=== PATIENT | female | born 1950 | race Caucasian/White ===

== ENCOUNTER 2023-02-16 13:18 | Observation (INO) | payer MEDICARE ==
[~2023-02-16] VITALS: Ht 160 cm; Wt 56.5 kg
[~2023-02-16 13:18] MED LIST: ATOR40TA PO; Amoxicillin500 MG PO; EUTHYROX25 MC1 PO; IBUP600 PO; LEVSOD50; Neurontin800 MG PO; Norco 5-325 Ta1 EACH PO; OXYB5 PO; Ropinirole HC0.25 MG; Zofran8 MG PO
[2023-02-16] MEDS ORDERED: MELA3 (13:41)
[2023-02-16] MEDS ORDERED: ERGO400 (13:41)
[2023-02-16 14:28] LABS: BASOPHILS ABSOLUTE AUTO 0.03 K/mm3 (0.00-0.23); BASOPHILS PERCENT AUTO 1 % (0-2); EOSINOPHILS ABSOLUTE AUTO 0.05 K/mm3 (0.00-0.68); EOSINOPHILS PERCENT AUTO 1 % (0-6); Hematocrit 34.1 % (33.0-51.0); Hemoglobin 11.2 g/dL (11.5-16.0); IMMATURE GRAN ABSOLUTE AUTO 0.01 K/mm3 (0.00-0.10); IMMATURE GRAN PERCENT AUTO 0 % (0-1); LYMPHOCYTES PERCENT AUTO 31 % (21-46); MONOCYTES ABSOLUTE AUTO 0.53 K/mm3 (0.16-1.47); MONOCYTES PERCENT AUTO 14 % (4-13); Mean Corpuscular HGB 29.5 pg (26.0-34.0); Mean Corpuscular HGB Conc 32.8 g/dL (31.5-36.5); Mean Corpuscular Volume 90 fL (80-100); Mean Platelet Volume 10.1 fL (9.1-12.4); NEUTROPHILS ABSOLUTE AUTO 2.08 K/mm3 (1.96-9.15); NEUTROPHILS PERCENT AUTO 53 % (41-73); Platelet Count 158 K/mm3 (150-400); RDW Standard Deviation 42.6 fL (35.1-46.3)
[2023-02-16 14:40] LABS: Albumin, Blood 3.7 g/dL (3.4-5.0); Albumin/Globulin Ratio 1.1 (0.8-1.8); Bilirubin, Total 0.4 mg/dL (0.1-1.0); Calcium, Blood 8.7 mg/dL (8.5-10.1); Creatinine, Blood 0.67 mg/dL (0.40-1.00); Globulin, Blood 3.3 g/dL (2.2-4.0); Potassium, Blood 3.8 mmol/L (3.5-5.5)
--- NOTE | 2023-02-16 22:05 | NUR ---
REPORT FROM ESTHER LAMB IN ER. AWAITING ARRIVAL OF PATIENT TO ROOM 353
[2023-02-16 22:42] VITALS: BP 143/73
--- NOTE | 2023-02-17 06:40 | NUR ---
THE PATIENT ARRIVED INTACT WITHOUT ANY FURTHER NEUROLOGICAL EPISODES OVERNIGHT. MRI PAPERS COMPLETED BY PATIENT AND SENT (ORIG IN CHART). 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 SHE ACTUALLY NEVER DID HAVE TB ORIGINALLY SUSPECTED. THIS LADY RECEIVES 1600MG GABAPENTIN TWICE DAILY FOR THIS DISEASE ( PRESCRIBED BY [facility]) PHYSICAL ASSESSMENT BENIGN. NO COMPLAINTS OVERNIGHT
[2023-02-17 07:31] VITALS: BP 134/77
[2023-02-17] MEDS ORDERED: ASPI81CH PO (17:54)
--- NOTE | 2023-02-17 19:25 | NUR ---
pt discharged from the unit. iv removed. discharge instructions reviewed. otc medication only. pt ambulated off the unit. instructed on follow up apts.
== END 2023-02-17 18:34 | disposition home or self-care (01) ==
LOC: ER 13:18 → MEDS 13:19
PROVIDERS: Student in an Organized Health Care Education/Training Program; ADMIT Internal Medicine
DX: G83.24 Monoplegia of upper limb affecting left nondominant side (principal); E78.5 Hyperlipidemia, unspecified; G47.33 Obstructive sleep apnea (adult) (pediatric); N32.81 Overactive bladder
CPT/HCPCS: 70450; 70496; 70498; 70551; 80053; 85025; 93005; 93010; 94660; 95819; 96372; 99285-25; A9270; G0378; J1650; Q9967

== ENCOUNTER 2023-06-27 20:03 | Emergency (ER) | payer MEDICARE ==
[~2023-06-27] VITALS: Ht 162.6 cm; Wt 54.4 kg
[~2023-06-27 20:03] MED LIST changes: +ASPI81CH PO; +ERGO400; +MELA3
[2023-06-27 20:32] LABS: BASOPHILS ABSOLUTE AUTO 0.02 K/mm3 (0.00-0.23); BASOPHILS PERCENT AUTO 1 % (0-2); EOSINOPHILS ABSOLUTE AUTO 0.07 K/mm3 (0.00-0.68); EOSINOPHILS PERCENT AUTO 2 % (0-6); Hemoglobin 10.6 g/dL (11.5-16.0); IMMATURE GRAN PERCENT AUTO 0 % (0-1); LYMPHOCYTES PERCENT AUTO 36 % (21-46); MONOCYTES ABSOLUTE AUTO 0.59 K/mm3 (0.16-1.47); MONOCYTES PERCENT AUTO 14 % (4-13); Mean Corpuscular HGB 29.9 pg (26.0-34.0); Mean Corpuscular HGB Conc 32.1 g/dL (31.5-36.5); Mean Corpuscular Volume 93 fL (80-100); Mean Platelet Volume 10.1 fL (9.1-12.4); NEUTROPHILS ABSOLUTE AUTO 2.02 K/mm3 (1.96-9.15); NEUTROPHILS PERCENT AUTO 48 % (41-73); Platelet Count 184 K/mm3 (150-400); RDW Coefficient Variation 13.6 % (11.7-14.2); RDW Standard Deviation 46.5 fL (35.1-46.3); Red Blood Cell Count 3.54 M/mm3 (3.80-5.20)
[2023-06-27 20:54] LABS: Albumin, Blood 3.6 g/dL (3.4-5.0); Albumin/Globulin Ratio 1.1 (0.8-1.8); Bilirubin, Total 0.2 mg/dL (0.1-1.0); Bun/Creatinine Ratio 27.2 (12.0-20.0); Calcium, Blood 8.8 mg/dL (8.5-10.1); Creatinine, Blood 0.74 mg/dL (0.40-1.00); Globulin, Blood 3.3 g/dL (2.2-4.0); Potassium, Blood 4.2 mmol/L (3.5-5.5); Total Protein, Blood 6.9 g/dL (6.4-8.2)
[2023-06-27 21:11] VITALS: BP 118/71
== END 2023-06-27 23:35 | disposition home or self-care (01) ==
LOC: ER 20:03
PROVIDERS: Student in an Organized Health Care Education/Training Program
DX: R29.898 Other symptoms and signs involving the musculoskeletal system (principal); Z79.899 Other long term (current) drug therapy; Z79.82 Long term (current) use of aspirin
CPT/HCPCS: 70450; 80053; 85025; 99284-25

== ENCOUNTER 2023-11-13 10:48 | Day surgery (SDC) | payer MEDICARE ==
[~2023-11-13] VITALS: Ht 162.6 cm; Wt 54.4 kg
[~2023-11-13 10:48] MED LIST changes: +Lactated Ringer's 1,000 ML IV ONE; +propofoL 50 ML IV ONE
[2023-11-13] MEDS ORDERED: SERT25 (11:12)
[2023-11-13] MEDS ORDERED: Lactated Ringer's 1,000 ML IV ONE (12:25)
[2023-11-13] MEDS ORDERED: Ondansetron HCl 2 MG / ML 2ML Vial ONE (13:28)
[2023-11-13] MEDS ORDERED: Glycopyrrolate 0.2 MG/ML 1MLVIAL ONE (13:28)
[2023-11-13 13:52] VITALS: BP 115/97
== END 2023-11-13 13:54 | disposition home or self-care (01) ==
LOC: ORSCSDS 10:48
PROVIDERS: Internal Medicine Gastroenterology
PROC: 0DBM8ZX Excision of Descending Colon, Via Natural or Artificial Opening Endoscopic, Diagnostic (ICD-10-PCS; principal; 2023-11-13 12:00)
DX: K59.00 Constipation, unspecified (principal); Z86.010 Personal history of colon polyps; K63.5 Polyp of colon; E03.9 Hypothyroidism, unspecified; E78.5 Hyperlipidemia, unspecified; G47.33 Obstructive sleep apnea (adult) (pediatric); K21.9 Gastro-esophageal reflux disease without esophagitis; Z79.899 Other long term (current) drug therapy
CPT/HCPCS: 88305; J2405; J2704; J7120

== ENCOUNTER 2024-04-06 06:15 | Day surgery (SDC) | payer MEDICARE ==
[~2024-04-06] VITALS: Ht 162.6 cm; Wt 57.5 kg
[~2024-04-06 06:15] MED LIST changes: -Lactated Ringer's 1,000 ML IV ONE; +NS 500 ML IV ONE; +Povidone-Iodine 450 DROP/30 ML Solution ONE; +SERT25; +Tetracaine HCl/Pf 0.5% Opth Soln 4 ml ONE; -propofoL 50 ML IV ONE
[2024-04-06] MEDS ORDERED: NS 500 ML IV ONE (06:40)
--- NOTE | 2024-04-06 06:41 | NUR ---
04/06/24 0641 Esperanza Biggs CALL LIGHT WITHIN REACH. TETRACAINE IN RIGHT EYE AT 0635 AND PLEDGETT IN AT 0636
[2024-04-06] MEDS ORDERED: Lidocaine HCl/Pf 1% 5 ML VIAL ONE (06:43)
[2024-04-06] MEDS ORDERED: Midazolam HCl 1MG / ML 2ML Vial ONE (06:51)
[2024-04-06] MEDS ORDERED: FentaNYL Citrate 50 MCG/ML 2 ML Injection ONE (06:51)
[2024-04-06] MEDS ORDERED: Triamcinolone Acetonide/Pf 40 MG/ML Susp (1ML) IO ONE (07:25)
[2024-04-06] MEDS ORDERED: BETADINE RIGHTEYE ONE (07:30)
[2024-04-06] MEDS ORDERED: Sugarcaine Ophth Soln 3 mL SYR RIGHTEYE ONE (07:41)
[2024-04-06 08:00] VITALS: BP 115/65
== END 2024-04-06 08:30 | disposition home or self-care (01) ==
LOC: ORSCSDS 06:15
PROVIDERS: Ophthalmology
PROC: 08RJ3JZ Replacement of Right Lens with Synthetic Substitute, Percutaneous Approach (ICD-10-PCS; principal; 2024-04-06 07:30)
DX: H25.11 Age-related nuclear cataract, right eye (principal); Z86.73 Personal history of transient ischemic attack (TIA), and cerebral infarction without residual deficits; Z79.899 Other long term (current) drug therapy
CPT/HCPCS: J2001; J2250; J3010; J3300; J7040; V2632

== ENCOUNTER 2024-07-13 16:12 | Emergency (ER) | payer MEDICARE ==
[~2024-07-13] VITALS: Ht 157.5 cm; Wt 54.4 kg
[~2024-07-13 16:12] MED LIST changes: -NS 500 ML IV ONE; -Povidone-Iodine 450 DROP/30 ML Solution ONE; -Tetracaine HCl/Pf 0.5% Opth Soln 4 ml ONE
[2024-07-13 17:52] VITALS: BP 142/75
[2024-07-13] MEDS ORDERED: Zithromax250 MG PO (18:03)
[2024-07-13] MEDS ORDERED: Azithromycin 250 MG Tab PO ONE (18:05)
== END 2024-07-13 18:20 | disposition home or self-care (01) ==
LOC: ER 16:12
DX: J18.9 Pneumonia, unspecified organism (principal); Z79.82 Long term (current) use of aspirin; Z79.899 Other long term (current) drug therapy
CPT/HCPCS: 36415; 71250; 85025; 99283; A9270